=== PATIENT | male | born 1980 | race Two or more races ===

== ENCOUNTER 2023-10-29 21:26 | Inpatient (IN) | payer OTHER, SELFPAY ==
[2023-10-29] VITALS (7 sets, daily range): BP systolic 105–126; BP diastolic 65–81; BMI 30.2
[2023-10-29 16:38] LABS: % Basophils 0.2 % (0-2); % Eosinophils 0.2 % (0-6); % Immature Granulocytes 0.2 % (0-0.5); % Lymphocytes 14.8 % (20.5-51.1); % Monocytes 9.9 % (1.7-9.3); % Neutrophils 74.7 % (42.2-75.2); Absolute Lymphocytes 1.4 10^3/uL (1.2-3.4); Absolute Monocytes 0.9 10^3/uL (0.1-0.6); Absolute Neutrophils 6.9 10^3/uL (1.4-6.5); Hematocrit 41.3 % (39.0-52.0); Hemoglobin 14.2 g/dL (13.0-18.0); Mean Corp Hgb Conc. 34.4 g/dL (33.0-37.0); Mean Corpuscular Hgb 30.3 pg (27.0-31.0); Mean Corpuscular Volume 88.1 fL (80.0-94.0); Mean Platelet Volume 9.1 fL (7.4-10.4); Nucleated Red Blood Cells % 0 % (-); Platelet Count 243 10^3/uL (130-400); Red Blood Cell Count 4.69 10^6/uL (4.70-6.10); Red Cell Dist. Width 13.2 % (11.5-14.5); White Blood Cell Count 9.3 10^3/uL (4.8-10.8)
[2023-10-29 16:46] LABS: ALT (SGPT) 38 U/L (0-50); AST (SGOT) 24 U/L (17-59); Albumin 4.5 g/dl (3.5-5.0); Alkaline Phosphatase 80 U/L (38-126); Blood Urea Nitrogen 10 mg/dl (9-20); Calcium 9.8 mg/dl (8.4-10.2); Carbon Dioxide 26 mmol/L (22-30); Chloride 103 mmol/L (98-107); Glucose 105 mg/dl (70-99); Lipase 17 U/L (23-300); Potassium 3.9 mmol/L (3.5-5.1); Sodium 139 mmol/L (135-145); Total Bilirubin 1.5 mg/dl (0.2-1.3); Total Protein 7.2 g/dl (6.3-8.2); eGFR > 60.00
[2023-10-29 17:06] LABS: Urine Albumin Negative (Neg - Trace); Urine Bilirubin Negative (Negative); Urine Character Clear (Clear); Urine Color Amber; Urine Glucose Negative (Negative); Urine Ketone Negative (Negative); Urine Leukocyte Trace (Negative); Urine Nitrite Negative (Negative); Urine Occult Blood Negative (Negative); Urine Specific Gravity 1.015 (<1.030); Urine Urobilinogen Negative (Neg - 1+)
[2023-10-29 17:21] LABS: Urine Red Blood Cell 0-2 /HPF (0-2)
[2023-10-29] MEDS: TORADOL 15 MG IV (17:21)
[2023-10-29] MEDS: NSS 500 IV (17:21)
[2023-10-29] MEDS: ZOSYN 100 IV (20:06)
--- NOTE | 2023-10-29 20:11 | ED.GENMED ---
History of Present Illness
General
Chief Complaint: Abdominal Symptoms
Source: patient
Exam Limitations: none
Time Seen by Provider: 10/29/23 16:11
Nursing documentation reviewed up to this point in time: agreed with
Travel History
Have you had any contact with someone who has COVID-19?: No
Do you have any symptoms of coronavirus? Fever > 100 degrees, chills, cough, shortness of breath, sore throat, loss of taste or smell, muscle aches, or headache?: No
History of Present Illness
History of Present Illness:
43-year-old male with past medical history of diverticulitis anxiety depression panic disorder prediabetes presenting to the emergency department today with concerns of left lower quadrant pain starting yesterday has a history of diverticulitis
expected to have surgery with Dr. Cardenas in 1 month. No fevers no chest pain shortness of breath nausea or vomiting.
Review of Systems
Review of Systems
Allergies reviewed?: Yes
All Other Systems: ROS reviewed and negative except as documented in HPI and ROS
Phy Exam
Physical Exam
Physical Exam:
GENERAL: Alert , in no apparent distress
EYE: pupils equal and reactive
NECK: Supple, no significant adenopathy.
ENT: o/p clr, mmm.
CARDIAC: Regular rate and rhythm .
LUNGS: Clear breath sounds bilaterally, no acute respiratory distress, no wheezes/rales/rhonchi
ABDOMEN: Left lower quadrant abdominal pain otherwise soft benign abdomen
NEUROLOGICAL: Alert and oriented, no focal neuro deficits
SKIN: Warm and dry, skin intact.
MUSCULOSKELETAL: No edema, well perfused.
PSYCH: Normal and appropriate interaction.
Course
Orders/Labs/Results
Orders:
Orders
10/29/23 16:21
Complete Blood Count/With Diff Urgent
Comprehensive Metabolic Panel Urgent
Lipase Urgent
10/29/23 16:23
Urinalysis Reflex To Culture Urgent
Date Specimen was Collected: 10/29/23
Time Specimen was Collected: 16:22
Urine Microscopic Reflex Cult Urgent
10/29/23 17:16
CT Abd/Pel (IV only)-DH only Urgent
Comment:
Reason For Exam: llq pain
0.9% Sodium Chloride 500 ml [Nss] 500 ml IV BOLUS
Ketorolac [Toradol] 15 mg IV NOW STA
10/29/23 20:02
Piperacillin/Tazo 4.5 Gram [Zosyn] 4.5 gram in 100 ml IV NOW
Abnormal Lab Results
10/29/23 10/29/23
16:21 16:23
RBC 4.69 L 10^6/uL
(4.70-6.10)
Absolute Neuts (auto) 6.9 H 10^3/uL
(1.4-6.5)
Absolute Monos (auto) 0.9 H 10^3/uL
(0.1-0.6)
Lymphocytes % 14.8 L %
(20.5-51.1)
Monocytes % 9.9 H %
(1.7-9.3)
Glucose 105 H mg/dl
(70-99)
Total Bilirubin 1.5 H mg/dl
(0.2-1.3)
Lipase 17 L U/L
(23-300)
Leukocyte Esterase Rfl Trace A
(Negative)
10/29/23 16:21
10/29/23 16:21
Vital Signs
Initial and Last Documented VS:
Initial Vital Signs
Temp Pulse Resp Pulse Ox
99.2 F 98 16 98
10/29/23 15:12 10/29/23 15:12 10/29/23 15:12 10/29/23 15:12
Last Documented Vital Signs
Temp Pulse Resp BP Pulse Ox
99.2 F 80 16 105/65 98
10/29/23 15:12 10/29/23 20:09 10/29/23 20:09 10/29/23 19:00 10/29/23 20:09
MDM/Problems Addressed
MDM/Problems Addressed:
43-year-old male presenting to the emergency department today with concerns of left lower quadrant abdominal pain worsening since yesterday. History of diverticulitis feels similar. Here CT scan was performed that showed sigmoid diverticulitis
complex pericolonic abscess as well as adjacent bubbles of extraluminal air. Case discussed with colorectal will admit. Started on antibiotics. Stable throughout ER stay
*Critical Care Note
Total Time (30-74mins, 75-104mins- exclusive of procedures): Not Applicable
ED Attending Note
-
Portions of this chart may have been created with voice recognition software.� Occasional wrong word or��sound alike� substitutions may have occurred due to the inherent limitations of voice recognition software.
Discharge Plan
Departure
Patient Disposition: Admit
Date of Disposition: 10/29/23
Time of Disposition: 20:12
Admit to: Med/Surg
Admit to doctor: Mc
Presentation/result/management discussed w/ accepting MD/DO: Hospitalist
Patient with high blood pressure during this ER visit?: No
Condition: Good
Covid-19: Not Applicable
Discharge Problem:
Diverticulitis of intestine with abscess
Referrals:
Janes Wade DO [Family Provider] -
Interventions
Interventions:
*Risk Screen - Suicide Last Done: 10/29/23 17:25
*General Assessment Last Done: 10/29/23 17:25
*Neglect/Abuse Screening Last Done: 10/29/23 17:25
ED- Fall Risk Assessment Last Done: 10/29/23 17:25
*ED COVID-19 Vaccine History Last Done: 10/29/23 17:25
NM-Sewwis-Wdfxsgdtqy Assessment Last Done: 10/29/23 17:25
Discharge Date and Time
Print Language: CZECH
--- NOTE | 2023-10-29 20:17 | HPS.HSE ---
Addendum entered and electronically signed by Aamir Bentley DO 10/29/23 21:08:
Patient seen and examined independently. Agree with findings and plan as set forth by CHRISTIANO Vázquez.
Patient is a 43y M with PMH significant for anxiety, GERD and recurrent sigmoid diverticulitis who presents to ED complaining of LLQ abdominal pain and occasional chills. Patient notes that he has had 4-5 episodes of diverticulitis since
04/2023. He was scheduled for sigmoid resection with Dr. Cardenas in November. He denies any bloody / black stools, N/V, fevers, etc.
Ass:
Recurrent Sigmoid Diverticulitis with Pericolonic Abscess
Anxiety / Depression
GERD / Mendenhall's
Plan:
Admit for further evaluation and treatment.
IV abx, NPO, IVFs, etc.
Colorectal Surgery evaluation.
? IR drainage of abscess v surgical intervention.
Follow for any new / worsening symptoms.
Original Note:
Family Physician
-
Family Physician: Janes Wade, DO
Chief Complaint
-
Left lower quadrant pain
History of Present Illness
43-year-old male complaining of left lower quadrant pain that started yesterday. He has history of known diverticulitis starting April 2023 with microperforation followed by diverticulitis in June, July, October 01 with perforated fluid.
He was due to have sigmoid resection in [address] Cardenas. He denies fever, headache, chest pain, palpitations, shortness breath, cough, nausea, vomiting, diarrhea, urinary symptoms. In the ER he was noted to have a sigmoid diverticulitis with
pericolonic abscess
Past medical history diverticulitis, anxiety, panic disorder, depression, prediabetes.
Medical History
Past Medical History
Past Medical History: Reports Other
Additional Past Medical History:
Diverticulitis
Anxiety, panic disorder
Depression
Prediabetes
Past Surgical History: Reports Other
Additional Past Surgical History:
Cholecystectomy
Hernia repair child
Left foot ORIF
Social History
Tobacco: Non-smoker
Alcohol: None
Drug: None
Personal: Single
Employment: Employed
Family History
Family History: Other (Mother history of diverticulosis, valvular heart disorder, DM 2, father [place] age 62, brother DM 2)
Allergies / Home Medications
Allergies reflects when Allergies were last updated in [facility].
Home Medications with original date entered in [facility]
Allergy/Medication List:
Allergies
Allergy/AdvReac Type Severity Reaction Status Date / Time
No Known Allergies Allergy Unverified 10/29/23 15:15
Home Medications
Miralax 17 g PO DAILY 10/29/23
Nexium 40 mg PO DAILY 10/29/23
Review of Systems
-
History Source: Patient
A 12 point ROS was completed and negative except as noted: Yes
Constitutional: Denies Fever or Chills
EENT: Denies Sore Throat or Runny Nose
Respiratory: Denies Cough or Trouble Breathing
Cardiac: Denies Chest Pain, Diaphoresis, Palpitations or Syncope
Abdomen/GI: Reports Abdominal Pain (LLQ); Denies Nausea, Vomiting, Diarrhea, Constipated, Bloody Stools or Black Stools
: Denies Dysuria, Frequency, Flank Pain, Incontinence or Difficulty Voiding
Musculoskeletal: Denies Joint Pain or Edema
Skin: Denies Itching or Rash
Neurological: Denies Dizzy, Headache or Weakness
Endocrine: Reports No Symptoms
Hematologic/Lymphatic: Reports No Symptoms
Psych: Reports Calm
Physical Exam
Vital Signs
Vital Signs
Temp Pulse Resp BP Pulse Ox
99.2 F 80 16 105/65 98
10/29/23 15:12 10/29/23 20:09 10/29/23 20:09 10/29/23 19:00 10/29/23 20:09
Physical Exam
General: Conversant; No Pain, Fever or Chills
HEENT: NormoCephalic, Anicteric, Moist mucous membranes, PERRLA and No Ptosis
Respiratory: Clear; No Wheezes, Rales or Rhonchi
Cardiac: S1/S2 and Regular Rhythm; No Murmur, Rub, Gallop or Peripheral Edema
Breast: Deferred by me
GI: Soft, Non Distended, Normal Bowel Sounds, Tender (LLQ) and No Hepatosplenomegaly
Rectal: Deferred by Provider
Genito-urinary: Deferred by me
Musculoskeletal: No Clubbing, No Cyanosis and No Edema
Skin: Warm and Dry; No Rash or Jaundice
Neuro: AO x 3, No Motor Deficits, Nonfocal/grossly intact and No Sensory Deficits; No Slurred Speech, Facial Droop or Tremors
Psych: Calm
Laboratory Results
-
10/29/23 16:21
10/29/23 16:21
Laboratory Results
Total Bilirubin 1.5 mg/dl (0.2-1.3) H 10/29/23 16:21
AST 24 U/L (17-59) 10/29/23 16:21
ALT 38 U/L (0-50) 10/29/23 16:21
Alkaline Phosphatase 80 U/L (38-126) 10/29/23 16:21
Lipase 17 U/L (23-300) L 10/29/23 16:21
Data Reviewed
-
CT Scan: Report Reviewed by me
Lab Data: Labs Reviewed by me
Impression/Plan
-
Impression/plan:
Admit to [facility]
#Sigmoid diverticulitis with pericolonic abscess
#Hx diverticulitis(APR 2023 with perf, , June, July, September 2021 with perf)
-Consult colorectal surgery
-WBC 9.3, 99.2 F, HR 80, 105/65
-Hold p.o. MiraLAX 17 mg daily
-N.p.o. with sips of clear
-IV Zosyn
-IV NSS
-Follow CBC, CMP
CT abdomen pelvis with IV contrast:
1. Severe acute diverticulitis of the mid sigmoid colon
2. 5.1 cm complex pericolonic abscess anterior to the sigmoid colon and superior to the urinary bladder dome tiny adjacent bubbles of extraluminal
air
3. Moderate diffuse hepatic steatosis
4. Previous cholecystectomy
5. Mild splenomegaly
# Mod diffuse hepatic steatosis per CT
#Anxiety/panic disorder
#Depression Hx
-Patient reports is not on any medication uses deep breathing methods
#Mendenhall's esophagus
#GERD
-[employer] Nexium 40 mg daily will change to IV Protonix 40 mg daily
DVT prophylaxis
Subcu Lovenox
Full code
--- NOTE | 2023-10-29 22:00 | PTCARENOTE ---
Patient arrived from the ED via stretcher. Patient ambulated into the room. AAOx3, VSS. Patient oriented to the room, educated on medications and PRN pain medication and antiemetics. Call pereira is within reach.
[2023-10-29] MEDS: NSS 1000 IV (22:19)
[2023-10-30] VITALS (11 sets, daily range): BP systolic 73–134; BP diastolic 63–79; PULSE 88; O2SAT 97; BMI 30.2
[2023-10-30] MEDS: ZOSYN 50 IV ×4 (01:55→19:40)
[2023-10-30 06:20] LABS: % Basophils 0.3 % (0-2); % Eosinophils 0.5 % (0-6); % Immature Granulocytes 0.4 % (0-0.5); % Monocytes 10.1 % (1.7-9.3); % Neutrophils 71.7 % (42.2-75.2); Absolute Lymphocytes 1.3 10^3/uL (1.2-3.4); Absolute Monocytes 0.8 10^3/uL (0.1-0.6); Absolute Neutrophils 5.4 10^3/uL (1.4-6.5); Hematocrit 38.8 % (39.0-52.0); Hemoglobin 12.8 g/dL (13.0-18.0); Mean Corpuscular Volume 91.1 fL (80.0-94.0); Mean Platelet Volume 9.3 fL (7.4-10.4); Nucleated Red Blood Cells % 0 % (-); Platelet Count 191 10^3/uL (130-400); Red Blood Cell Count 4.26 10^6/uL (4.70-6.10); Red Cell Dist. Width 13.2 % (11.5-14.5); White Blood Cell Count 7.5 10^3/uL (4.8-10.8)
[2023-10-30 06:55] LABS: ALT (SGPT) 30 U/L (0-50); AST (SGOT) 21 U/L (17-59); Albumin 3.6 g/dl (3.5-5.0); Alkaline Phosphatase 75 U/L (38-126); Blood Urea Nitrogen 11 mg/dl (9-20); Carbon Dioxide 24 mmol/L (22-30); Chloride 107 mmol/L (98-107); Estimated Creatinine Clearance 120 ml/min; Glucose 98 mg/dl (70-99); Potassium 3.8 mmol/L (3.5-5.1); Sodium 139 mmol/L (135-145); Total Bilirubin 1.7 mg/dl (0.2-1.3); Total Protein 6.1 g/dl (6.3-8.2); eGFR > 60.00
[2023-10-30] MEDS: PROTONIX IV 40 MG IV (08:40)
[2023-10-30] MEDS: NSS (PRESERVATIVE FREE) 10 ML IV (08:40)
[2023-10-30] MEDS: NSS 1000 IV (08:44)
--- NOTE | 2023-10-30 09:20 | W.PN.HOSP.TC ---
Today's Communication/Plan
-
see outlined plan
Assessment / Plan
Assessment / Plan
Assessment:
Recurrent Sigmoid Diverticulitis with Pericolonic Abscess
- CT: Severe acute diverticulitis of the mid sigmoid colon. 5.1 cm complex pericolonic abscess anterior to the sigmoid colon and superior to the urinary bladder dome tiny adjacent bubbles of extraluminal air
- continue NPO/IVF
- continue pain control and anti-emetics
- continue IV Zosyn
- likely will need IR to place drain. CRS following. Of note, he is scheduled for surgical resection in mid November.
Anxiety/Depression
- not on meds
GERD/Mendenhall's
- continue PPI
Mod diffuse hepatic steatosis per CT
DVT prophylaxis: Lovenox
Code: Full
Anticipated Discharge: > 48 hours
Subjective/Interval History
-
Date of Service: October 30, 2023
'feels better than yesterday'
aware of drain plan
Objective Data
-
Labs:
Laboratory Results
10/30/23
05:21
WBC 7.5
Hgb 12.8 L
Hct 38.8 L
Plt Count 191 D
Sodium 139
Potassium 3.8
Chloride 107
Carbon Dioxide 24
BUN 11
Creatinine 0.9
Glucose 98
Calcium 9.0
Total Bilirubin 1.7 H
AST 21
ALT 30
Alkaline Phosphatase 75
Vital Signs:
Vital Signs
Temp Pulse Resp BP Pulse Ox
99.2 F 91 16 123/64 94
10/30/23 07:30 10/30/23 07:30 10/30/23 07:30 10/30/23 07:30 10/30/23 07:30
I&O
10/29/23 10/30/23 10/31/23
06:59 06:59 06:59
Intake Total 1050 / 1050
Balance 1050 / 1050
Physical Exam
-
General: No Apparent Distress
HEENT: Normocephalic and Atraumatic
Respiratory: Negative Wheezes
Cardiac: Regular Rhythm and S1/S2
GI: Tender (LLQ)
Musculoskeletal: No Edema
Neuro: AO x 3
Hematologic / Lymphatic: No Lymphadenopathy
Psych: Calm
Data Reviewed
-
Total Time Spent with Patient (in minutes): 42
Labs: Labs Reviewed by me
--- NOTE | 2023-10-30 09:35 | PTOTSP ---
pt currently demonstrates ability to complete simple ADLs, functional transfers, ambulation with supervision to no assistance. pt demonstrates no acute OT needs at this time, will sign off.
--- NOTE | 2023-10-30 10:28 | PTOTSP ---
Patient demonstrates good insight into safety with mobility and ambulation without overt deviation. Independent with mobility and does not demonstrate further need for skilled therapy; will discharge at this time. If needs change, please re-consult.
--- NOTE | 2023-10-30 10:31 | CON.CRS ---
Consultation
-
Performing Provider: Prateek Rivera MD
Reason for Consultation: diverticulitis
Medical History
-
History of Present Illness:
Patient is a 43-year-old male with PMH of GERD, anxiety, prediabetes, recurrent diverticulitis (scheduled for surgery with Dr. Cardenas in November), who presents with 1 day of acute abdominal pain in the left lower to suprapubic region, similar to
previous episodes. He denies any N/V, CP/SOB. No urinary symptoms except for bladder pressure during urination. In the ED, he was afebrile with WBC of 9.3. A CT was done showing acute sigmoid diverticulitis with 5 cm pericolonic abscess. He was
admitted with IVF, IV antibiotics and bowel rest.
This morning, denies any N/V. Passing flatus and had a BM. Urinating well. Pain well-controlled.
Past Medical History
Past Medical History: Other (As above)
Past Surgical History: Other (Cholecystectomy, hernia repair, left foot ORIF)
Social History
Tobacco: Non-Smoker
Alcohol: None
Drug: None
Personal: Single
Employment: Employed
Family History
Family History: Other (Mother - diverticulosis, valvular heart disorder, DM 2; father - [place] age 62; brother - DM)
Allergies / Home Medications
Allergy/AdvReac Type Severity Reaction Status Date / Time
No Known Allergies Allergy Unverified 10/29/23 15:15
�Medication �Instructions �Recorded �Confirmed �Type
Miralax 17 g PO DAILY 10/29/23 10/29/23 History
Nexium 40 mg PO DAILY 10/29/23 10/29/23 History
Review of Systems
-
All other systems: Negative unless noted
A 10 point review of systems was completed, and was negative except as per HPI.
Physical Exam
Vital Signs
Temp 99.2 F 10/30/23 07:30
Pulse 91 10/30/23 07:30
Resp Rate 16 10/30/23 07:30
Blood pressure 123/64 10/30/23 07:30
SaO2 94 10/30/23 07:30
10/29/23 10/30/2324
06:59 06:59 06:59
Actual Weight 95.481 kg
Body Mass Index (BMI) 30.2
Lab Results / Allergies
10/30/23 05:21
10/30/23 05:21
WBC 7.5 10^3/uL (4.8-10.8) 10/30/23 05:21
Hgb 12.8 g/dL (13.0-18.0) L 10/30/23 05:21
Hct 38.8 % (39.0-52.0) L 10/30/23 05:21
Plt Count 191 10^3/uL (130-400) D 10/30/23 05:21
Abs Immat Gran (auto) 0.0 10^3/uL (0-0.05) 10/30/23 05:21
Neutrophils % 71.7 % (42.2-75.2) 10/30/23 05:21
Allergy/AdvReac Type Severity Reaction Status Date / Time
No Known Allergies Allergy Unverified 10/29/23 15:15
Physical Exam
General: Well Developed and No Apparent Distress
HEENT: Normocephalic and Atraumatic
Respiratory: Non Labored Respirations
GI: Soft, Non Distended and Tender (Mildly tender in the suprapubic to left lower quadrant; no rebound or guarding)
Skin: Warm and Dry
Neuro: AO x 3
Data Reviewed
-
CT Scan: Image Personally Visualized and interpreted and Discussed with Patient
Labs: Labs Reviewed by me and Discussed with Patient
Assessment / Plan
-
43-year-old male with PMH of GERD, anxiety, prediabetes, recurrent diverticulitis (scheduled for surgery with Dr. Cardenas in November), who presents with 1 day of acute abdominal pain in the left lower to suprapubic region, similar to previous episodes.
He denies any N/V, CP/SOB. No urinary symptoms except for bladder pressure during urination. In the ED, he was afebrile with WBC of 9.3. A CT was done showing acute sigmoid diverticulitis with 5 cm pericolonic abscess. He was admitted with IVF,
IV antibiotics and bowel rest
Afebrile, WBC 7.5 from 9.3
�Recommend IR consult for possible IR�guided drainage of suprapubic pericolonic diverticular abscess
� No acute surgical intervention currently indicated; discussed with patient the treatment for complicated versus uncomplicated diverticulitis and risks/benefits of nonoperative versus operative treatment, including, but not limited to, higher risk
of ostomy and open surgery in urgent setting; will proceed with nonoperative measures and IR guided drainage and monitor for clinical improvement
� Continue n.p.o.; okay for clears after drain placement
� Continue pain control with Tylenol, Toradol and morphine as needed
� Continue IV Zosyn
� Continue DVT PPx with Lovenox
� Continue home meds, okay for p.o. meds
� Appreciate hospitalist
--- NOTE | 2023-10-30 10:45 | CM ---
Patient seen bedside, initial assessment completed. Patient resides with his partner in a two story home, 5 steps to enter. Patient denies DME, VN, or SNF history. Patient confirms PCP Janes Wade, pharmacy [facility], confirms
prescription coverage. Patient denies food insecurities at home. CM received consult for advance directive paperwork, provided. Per Hospitalist, plan for IR drain today. CM will continue to follow for discharge planning needs.
Plan; home no needs, watch for VN needs.
[2023-10-30] MEDS: TORADOL 30 MG IV (11:24)
[2023-10-30 12:06] LABS: INR 1.19; PT 14.9 Sec (11.4-14.6)
--- NOTE | 2023-10-30 16:39 | W.PN.UPDATE ---
Update Note
Progress Note Update
CT guided abscess drain placed, yielding 15 cc of bloody purulent fluid. Sent for C+S.
--- NOTE | 2023-10-30 16:47 | PTCARENOTE ---
Arrived from IR with GENE drain to lower midline of abdomen. CDI.
[2023-10-30] MEDS: LOVENOX 40 MG SC (18:02)
[2023-10-31] MEDS: NSS 1000 IV ×2 (00:49→11:40)
[2023-10-31] MEDS: TORADOL 30 MG IV (02:35)
[2023-10-31] MEDS: ZOSYN 50 IV ×4 (02:35→19:39)
[2023-10-31 06:36] LABS: % Basophils 0.3 % (0-2); % Eosinophils 1.2 % (0-6); % Immature Granulocytes 0.5 % (0-0.5); % Monocytes 10.1 % (1.7-9.3); % Neutrophils 68.9 % (42.2-75.2); Absolute Eosinophils 0.1 10^3/uL (0-0.7); Absolute Lymphocytes 1.2 10^3/uL (1.2-3.4); Absolute Monocytes 0.6 10^3/uL (0.1-0.6); Absolute Neutrophils 4.2 10^3/uL (1.4-6.5); Hematocrit 34.9 % (39.0-52.0); Hemoglobin 11.8 g/dL (13.0-18.0); Mean Corp Hgb Conc. 33.8 g/dL (33.0-37.0); Mean Corpuscular Hgb 30.2 pg (27.0-31.0); Mean Corpuscular Volume 89.3 fL (80.0-94.0); Mean Platelet Volume 9.4 fL (7.4-10.4); Nucleated Red Blood Cells % 0 % (-); Platelet Count 195 10^3/uL (130-400); Red Blood Cell Count 3.91 10^6/uL (4.70-6.10); Red Cell Dist. Width 12.9 % (11.5-14.5); White Blood Cell Count 6.1 10^3/uL (4.8-10.8)
[2023-10-31 07:15] LABS: ALT (SGPT) 27 U/L (0-50); AST (SGOT) 22 U/L (17-59); Albumin 3.3 g/dl (3.5-5.0); Alkaline Phosphatase 64 U/L (38-126); Blood Urea Nitrogen 10 mg/dl (9-20); Calcium 8.6 mg/dl (8.4-10.2); Carbon Dioxide 21 mmol/L (22-30); Chloride 107 mmol/L (98-107); Estimated Creatinine Clearance > 125 ml/min; Glucose 93 mg/dl (70-99); Potassium 3.8 mmol/L (3.5-5.1); Sodium 137 mmol/L (135-145); Total Bilirubin 1.5 mg/dl (0.2-1.3); Total Protein 5.6 g/dl (6.3-8.2); eGFR > 60.00
[2023-10-31 07:20] VITALS: BP 113/70
--- NOTE | 2023-10-31 09:00 | W.PN.CRS1 ---
Today's Communication / Plan
-
Advance to low residue; okay for DC if tolerating
Recommend Augmentin for 7 to 10 days; can tailor antibiotic once culture data returns
Needs drain study in 2 weeks
Follow-up with Dr. Cardenas in 2 to 3 weeks
Assessment/Plan
-
43-year-old male with PMH of GERD, anxiety, prediabetes, recurrent diverticulitis (scheduled for surgery with Dr. Cardenas in November), who presents with 1 day of acute abdominal pain in the left lower to suprapubic region, similar to previous episodes.
He denies any N/V, CP/SOB. No urinary symptoms except for bladder pressure during urination. In the ED, he was afebrile with WBC of 9.3. A CT was done showing acute sigmoid diverticulitis with 5 cm pericolonic abscess. He was admitted with IVF,
IV antibiotics and bowel rest
S/p IR drain with 15 mL of grossly purulent fluid, sent for culture
Afebrile, WBC 6.1 from 7.5
� Advance to low residue diet
� Continue pain control with Tylenol, Toradol and morphine as needed
� Continue IV Zosyn; follow-up cultures
� Continue DVT PPx with Lovenox
� Continue home meds, okay for p.o. meds
� Appreciate hospitalist
�If tolerating low residue, okay for DC this afternoon
-would send on broad-spectrum oral antibiotic like Augmentin until culture data comes back
-will need drain study in 2 weeks and follow-up with Dr. Cardenas in 2 to 3 weeks
Subjective Data
Subjective Data
Date of Service: October 31, 2023
No overnight events.
Complains of pain near the drain. His abdominal pain is improving
Denies nausea/vomiting. Tolerating diet.
+flatus +BMs +voiding
Pt is OOB.
Objective Data
-
Vital Signs
Temp Pulse Resp BP Pulse Ox
98.8 F 81 16 113/70 95
10/31/23 07:20 10/31/23 07:20 10/31/23 07:20 10/31/23 07:20 10/31/23 07:20
Intake & Output
10/30/23 10/31/23 11/01/23
06:59 06:59 06:59
Intake Total 1600 / 1600
Output Total
Balance 1570 / 1570
Intake:
Oral fluids 400 / 400
IV fluids (Total) 1000 / 1000
IV piggybacks 200 / 200
Output:
Drain Output (Total)
Lower Abdomen Placed in IR
Other:
Number of approximated MODERATE 2 2
amounts of urine
Lab Results
10/31/23 05:52
10/31/23 05:52
Physical Exam
-
General: No Acute Distress and AOx3
HEENT: Grossly Normal
Abdomen: Soft, Non Distended, Tender (Mildly tender near suprapubic drain), No Guarding, No Rebound and Other (GENE-30 mL serosanguineous output)
Skin: Warm and Dry
[2023-10-31] MEDS: PROTONIX IV 40 MG IV (09:08)
[2023-10-31] MEDS: NSS (PRESERVATIVE FREE) 10 ML IV (09:08)
--- NOTE | 2023-10-31 10:16 | W.PN.HOSP.TC ---
Today's Communication/Plan
-
continue Abx pending cultures, continue drain
Assessment / Plan
Assessment / Plan
Assessment:
Recurrent Sigmoid Diverticulitis with Pericolonic Abscess
- CT: Severe acute diverticulitis of the mid sigmoid colon. 5.1 cm complex pericolonic abscess anterior to the sigmoid colon and superior to the urinary bladder dome tiny adjacent bubbles of extraluminal air
- s/p IR Drain 10/29. Needs drain study in 2 weeks with IR. Setup VN.
- continue pain control and anti-emetics
- continue IV Zosyn, day 2. Follow drain cultures. Tentatively plan Augmentin x 10 days
- diet: LRD will assess tolerance
- of note, he is scheduled for surgical resection in mid November. He will need to see Dr. Cardenas in 2-3 weeks.
Anxiety/Depression
- not on meds
GERD/Mendenhall's
- continue PPI
Mod diffuse hepatic steatosis per CT
DVT prophylaxis: Lovenox
Code: Full
Anticipated Discharge: Within 24 hours
Subjective/Interval History
-
Date of Service: October 31, 2023
s/p IRAD drainage
some pain near drainage, underlying abd pain improving
no n/v
tolerating diet
Objective Data
-
Labs:
Laboratory Results
10/31/23
05:52
WBC 6.1
Hgb 11.8 L
Hct 34.9 L
Plt Count 195
Sodium 137
Potassium 3.8
Chloride 107
Carbon Dioxide 21 L
BUN 10
Creatinine 0.8
Glucose 93
Calcium 8.6
Total Bilirubin 1.5 H
AST 22
ALT 27
Alkaline Phosphatase 64
Vital Signs:
Vital Signs
Temp Pulse Resp BP Pulse Ox
98.8 F 81 16 113/70 95
10/31/23 07:20 10/31/23 07:20 10/31/23 07:20 10/31/23 07:20 10/31/23 07:20
I&O
10/30/23 10/31/23 11/01/23
06:59 06:59 06:59
Intake Total 1600 / 1600
Output Total
Balance 1570 / 1570
Physical Exam
-
General: No Apparent Distress
HEENT: Normocephalic and Atraumatic
Respiratory: Negative Wheezes or Rales
Cardiac: Regular Rhythm and S1/S2
GI: Other (mildly tender near suprapubic drain)
Genito-urinary: No Costovertebral Tender
Musculoskeletal: No Edema
Neuro: AO x 3
Hematologic / Lymphatic: No Lymphadenopathy
Psych: Calm
Data Reviewed
-
Total Time Spent with Patient (in minutes): 42
Labs: Labs Reviewed by me
--- NOTE | 2023-10-31 13:33 | CM ---
Patient seen bedside, discussed VN for drain care. Patient reports he does not anticipate taking any time off an will not be home bound. CM will confirm patient does not qualify for VN as he is not home bound. CM spoke with Shira from [facility], unable
to accept patient as he is not homebound. CM will relay to patient. CM will continue to follow for discharge planning needs.
Plan; home, patient does not qualify for VN as he reports he is returning to work and will not be home bound.
[2023-10-31 15:55] VITALS: BP 126/69
[2023-10-31] MEDS: LOVENOX 40 MG SC (17:05)
[2023-10-31] MEDS: TYLENOL 650 MG PO (17:12)
[2023-10-31 23:17] VITALS: BP 104/66
[2023-11-01] MEDS: ZOSYN 50 IV ×2 (01:13→08:22)
[2023-11-01 07:45] VITALS: BP 150/79
[2023-11-01 08:03] LABS: % Basophils 0.7 % (0-2); % Eosinophils 2.5 % (0-6); % Immature Granulocytes 0.5 % (0-0.5); % Lymphocytes 23.9 % (20.5-51.1); % Monocytes 11.2 % (1.7-9.3); % Neutrophils 61.2 % (42.2-75.2); Absolute Eosinophils 0.1 10^3/uL (0-0.7); Absolute Lymphocytes 1.1 10^3/uL (1.2-3.4); Absolute Monocytes 0.5 10^3/uL (0.1-0.6); Absolute Neutrophils 2.7 10^3/uL (1.4-6.5); Hematocrit 38.7 % (39.0-52.0); Hemoglobin 12.9 g/dL (13.0-18.0); Mean Corp Hgb Conc. 33.3 g/dL (33.0-37.0); Mean Corpuscular Hgb 30.1 pg (27.0-31.0); Mean Corpuscular Volume 90.4 fL (80.0-94.0); Mean Platelet Volume 9.3 fL (7.4-10.4); Nucleated Red Blood Cells % 0 % (-); Platelet Count 191 10^3/uL (130-400); Red Blood Cell Count 4.28 10^6/uL (4.70-6.10); Red Cell Dist. Width 13.1 % (11.5-14.5); White Blood Cell Count 4.4 10^3/uL (4.8-10.8)
[2023-11-01] MEDS: NSS (PRESERVATIVE FREE) 10 ML IV (08:22)
[2023-11-01] MEDS: PROTONIX IV 40 MG IV (08:22)
[2023-11-01] MEDS: ZOFRAN 4 MG IV (08:27)
[2023-11-01 08:37] LABS: ALT (SGPT) 23 U/L (0-50); AST (SGOT) 20 U/L (17-59); Albumin 3.6 g/dl (3.5-5.0); Alkaline Phosphatase 68 U/L (38-126); Blood Urea Nitrogen 6 mg/dl (9-20); Carbon Dioxide 23 mmol/L (22-30); Chloride 107 mmol/L (98-107); Estimated Creatinine Clearance > 125 ml/min; Glucose 109 mg/dl (70-99); Potassium 3.8 mmol/L (3.5-5.1); Sodium 140 mmol/L (135-145); Total Bilirubin 1.1 mg/dl (0.2-1.3); Total Protein 6.1 g/dl (6.3-8.2); eGFR > 60.00
--- NOTE | 2023-11-01 09:13 | W.PN.CRS1 ---
Today's Communication / Plan
-
continue antibiotics
continue low residue
okay for d/c from our standpoint with drain and oral abx
Assessment/Plan
-
pt with acute sigmoid diverticulitis with 5 cm pericolonic abscess
S/p IR drain with 15 mL of grossly purulent fluid, sent for culture
� Continue low residue diet.
� Continue pain control with Tylenol, Toradol and morphine as needed
� Continue IV Zosyn; follow-up cultures - growing gram negative bacilli
� Continue DVT PPx with Lovenox
� Okay for discharge from our standpoint. He will need oral antibiotics as an outpatient. Follow up with Dr. Cardenas in 2 weeks. Will need eventual drain study in 2 weeks - order sent in, patient will need to call for an appt
Subjective Data
Subjective Data
Date of Service: November 01, 2023
Patient states he had some nausea this morning which he attributes to nerves. Otherwise, he states he is eating. He denies nausea or vomiting. He has bowel movements and flats.
Objective Data
-
Vital Signs
Temp Pulse Resp BP Pulse Ox
98.6 F 88 16 150/79 96
11/01/23 07:45 11/01/23 07:45 11/01/23 07:45 11/01/23 07:45 11/01/23 07:45
Intake & Output
10/31/23 11/01/23 11/02/23
06:59 06:59 06:59
Intake Total 1600 / 1600
Output Total 30 / 30 20 / 20
Balance 1570 / 1570 - /
Intake:
Oral fluids 400 / 400
IV fluids (Total) 1000 / 1000
IV piggybacks 200 / 200
Amount instilled into Drain (
Total)
Lower Abdomen Placed in IR
Output:
Drain Output (Total)
Lower Abdomen Placed in IR
Other:
Number of approximated MODERATE 2 2
amounts of urine
Lab Results
11/01/23 07:23
11/01/23 07:23
Physical Exam
-
General: No Acute Distress and AOx3
Abdomen: Soft, Non Distended, Tender (suprapubic near drain (mild)) and Other (GENE drain in place with mixed blood and pus)
Skin: Warm and Dry
--- NOTE | 2023-11-01 09:33 | W.PN.HOSP.TC ---
Today's Communication/Plan
-
dc to home
Assessment / Plan
Assessment / Plan
Assessment:
Recurrent Sigmoid Diverticulitis with Pericolonic Abscess
- CT: Severe acute diverticulitis of the mid sigmoid colon. 5.1 cm complex pericolonic abscess anterior to the sigmoid colon and superior to the urinary bladder dome tiny adjacent bubbles of extraluminal air
- s/p IR Drain 10/29. Needs drain study in 2 weeks with IR.
- continue pain control and anti-emetics
- dc on Augmentin x 10 days. culture GNB. I will follow results for any additional findings that would prompt antibiotic changes.
- diet: LRD will assess tolerance
- of note, he is scheduled for surgical resection in mid November. He will need to see Dr. Cardenas in 2-3 weeks.
Anxiety/Depression
- not on meds
GERD/Mendenhall's
- continue PPI
Mod diffuse hepatic steatosis per CT
DVT prophylaxis: Lovenox
Code: Full
More than 30 minutes spent in discharge including
Final examination of the patient
Summarizing hospital stay
Instructions for continuing care to all relevant caregivers
Preparation of discharge records, prescriptions, and referral forms
Total time spent (in minutes):41
Anticipated Discharge: Today
Subjective/Interval History
-
Date of Service: November 01, 2023
anxious this morning, no other complaints
Objective Data
-
Labs:
Laboratory Results
11/01/23
07:23
WBC 4.4 L
Hgb 12.9 L
Hct 38.7 L
Plt Count 191
Sodium 140
Potassium 3.8
Chloride 107
Carbon Dioxide 23
BUN 6 L
Creatinine 0.8
Glucose 109 H
Calcium 9.0
Total Bilirubin 1.1
AST 20
ALT 23
Alkaline Phosphatase 68
Vital Signs:
Vital Signs
Temp Pulse Resp BP Pulse Ox
98.6 F 88 16 150/79 96
11/01/23 07:45 11/01/23 07:45 11/01/23 07:45 11/01/23 07:45 11/01/23 07:45
I&O
10/31/23 11/01/23 11/02/23
06:59 06:59 06:59
Intake Total 1600 / 1600
Output Total
Balance 1570 / 1570 -10 / -10
Physical Exam
-
General: No Apparent Distress
HEENT: Normocephalic and Atraumatic
Respiratory: Negative Wheezes
Cardiac: Regular Rhythm
GI: Soft
Genito-urinary: No Costovertebral Tender
Neuro: AO x 3
Hematologic / Lymphatic: No Lymphadenopathy
Psych: Calm
Data Reviewed
-
Total Time Spent with Patient (in minutes): 41
Labs: Labs Reviewed by me
--- NOTE | 2023-11-01 10:01 | W.DS.TRANS ---
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
-
Discharge Instructions:
Discharge Diagnosis/Procedures diverticulitis with abscess
Diet Low Residue
Activity No strenuous activity
Additional Activity see paper script for restrictions
Bathing Restrictions None
Instructions: Low Fiber Diet
How to Keep Track of Your Drainage
Stand-Alone Forms:
Changes to Home Medications: No
Discharge Medications:
DC Medications w/original date entered in [facility]
Miralax 17 g PO DAILY 10/29/23
Nexium 40 mg PO DAILY 10/29/23
amoxicillin 875 mg-potassium clavulanate 125 mg tablet 1 tab PO Q12H #20 tabs 11/01/23
ondansetron 4 mg disintegrating tablet 4 mg PO Q8H PRN nausea and vomiting #20 tabs 11/01/23
Home Medication Changes
Pending Results: No
Total time spent discharging patient (in min): 41
[2023-11-01 11:56] VITALS: BP 123/75
--- NOTE | 2023-11-01 11:59 | CM ---
Patient seen bedside, discussed plan for discharge today. Patient aware [facility] cannot accept patient as he is not home bound and is returning to work. Patient reports he will have transportation home later this evening, patient feels comfortable
transporting self home, patient not on any narcotics per nurse. CM will continue to follow for discharge planning needs.
Plan; home no needs.
--- NOTE | 2023-11-03 12:38 | W.PN.UPDATE ---
Update Note
Progress Note Update
Noted final culture with ESBL susceptible to Bactrim. Notified patient via VM for updated Bactrim RX and stop Augmentin. Left # for him to call me back
== END 2023-11-01 12:36 | disposition home or self-care (01) | DRG 392 ==
LOC: 4 EAST ACU 21:26
PROVIDERS: Clinical Nurse Specialist Family Health; Physician Assistant; Radiology Vascular & Interventional Radiology; ADMITTING PHYSICIAN Hospitalist; ATTENDING PHYSICIAN Internal Medicine; CONSULT PHYSICIAN Surgery; EMERGENCY PHYSICIAN Student in an Organized Health Care Education/Training Program; FAMILY PHYSICIAN Family Medicine
PROC: 0W9J30Z Drainage of Pelvic Cavity with Drainage Device, Percutaneous Approach (ICD-10-PCS; 2023-10-30)
DX: K57.20 Diverticulitis of large intestine with perforation and abscess without bleeding (principal); K21.9 Gastro-esophageal reflux disease without esophagitis; K22.70 Barrett's esophagus without dysplasia; F32.A Depression, unspecified; F41.0 Panic disorder [episodic paroxysmal anxiety]; K76.0 Fatty (change of) liver, not elsewhere classified
CPT/HCPCS: 49406; 74177; 80053; 81003; 81015; 83690; 85025; 85610; 87070; 87077; 87147; 87186; 87205; 96361; 96365; 96375; 97116; 97162; 97165; 99152; 99153; 99285; Q9967

== ENCOUNTER → 2023-11-10 12:09 | Outpatient (REF) | payer OTHER, SELFPAY ==
[2023-11-10 12:25] VITALS: BP 124/83; BP_SYST 88
[2023-11-10 12:55] VITALS: BP 120/70
== END ==
LOC: RADI 12:09
PROVIDERS: ATTENDING PHYSICIAN Surgery; FAMILY PHYSICIAN Family Medicine
DX: K57.32 Diverticulitis of large intestine without perforation or abscess without bleeding (principal)
CPT/HCPCS: 49424; 76080

== ENCOUNTER 2023-11-24 00:32 | Emergency (ER) | payer OTHER, SELFPAY ==
[2023-11-24 01:04] VITALS: BP 112/73
--- NOTE | 2023-11-24 01:26 | ED.GENMED ---
History of Present Illness
General
Chief Complaint: Allergic Reaction
Source: patient
Exam Limitations: none
Time Seen by Provider: 11/24/23 01:16
Travel History
Have you had any contact with someone who has COVID-19?: No
Do you have any symptoms of coronavirus? Fever > 100 degrees, chills, cough, shortness of breath, sore throat, loss of taste or smell, muscle aches, or headache?: No
History of Present Illness
History of Present Illness:
This is a 43 year old male that comes in with c/o allergic reaction. States that he is doing a bowel prep as he is to have surgery this morning. States that they are taking out part of his colon for diverticulitis. States that he took the first part
of the prep and he went to take the second part of the prep and he broke out in hives all over and vomiting. States that his tongue felt tingling and he was shaking. States that he felt lightheaded. Denies any fever, chills, chest pain, SOB, abd
pain, headache, urinary burning.
Past History
Past History
ED Past Medical History: GERD, Psychiatric (Anxiety, Depression) and Other (barretts esophagus, Diverticulitis, )
ED Past Surgical History: Cholecystectomy, Orthopedic (ORIF left foot) and Other (Hernia)
Social History
Tobacco: Non-smoker
Alcohol: None
Personal: Partner (Same sex)
Living: with family
Review of Systems
Review of Systems
All Other Systems: ROS reviewed and negative except as documented in HPI and ROS
Constitutional: Reports no symptoms; Denies fever or chills
EENT: Reports no symptoms
Respiratory: Reports no symptoms; Denies cough or trouble breathing
Cardiac: Reports no symptoms; Denies chest pain
ABD/GI: Reports vomiting and diarrhea; Denies abdominal pain
: Reports no symptoms
Musculoskeletal: Reports no symptoms
Skin: Reports other (Hives)
Neurological: Reports other (Lightheaded); Denies headache
Psychiatric: Reports no symptoms
Phy Exam
General Physical Exam
General Presentation: no apparent distress
General age: appears stated age
General Skin: warm and dry
General Habitus: normal
General Mental: alert
General Hydration: appears well hydrated
ENT Exam
ENT Exam: TM's normal, pharynx normal and neck supple
Eye Exam
Eye Exam: EOMI
Cardiovascular Exam
Cardiovascular Exam: regular rate/rhythm, no edema, no murmur and normal peripheral pulses
Pulmonary Exam
Pulmonary Exam: lungs clear, no respiratory distress, no rales, chest non tender, no crackles, no rhonchi, no wheezing and no cough
Gastrointestinal Exam
Gastrointestinal Exam: normal bowel sounds, non tender, soft, no organomegaly, no pulsatile mass and non distended
Musculoskeletal Exam
Musculoskeletal Exam: full ROM and no edema
Skin Exam
Skin Exam: normal color, warm/dry, no petechia and other (Very faint red spots noted on the medial aspect of the thighs)
Psychiatric Exam
Psychiatric Exam: normal mood/affect
Course
Orders/Labs/Results
Orders:
Orders
11/24/23 01:25
0.9% Sodium Chloride 1000 ml [Nss] 1,000 ml IV BOLUS
Famotidine [Pepcid] 20 mg IV NOW STA
Vital Signs
Initial and Last Documented VS:
Initial Vital Signs
Temp Pulse Resp BP Pulse Ox
99.7 F 107 16 112/73 95
11/24/23 01:04 11/24/23 01:04 11/24/23 01:04 11/24/23 01:04 11/24/23 01:04
Last Documented Vital Signs
Temp Pulse Resp BP Pulse Ox
99.7 F 107 16 112/73 95
11/24/23 01:04 11/24/23 01:04 11/24/23 01:04 11/24/23 01:04 11/24/23 01:04
MDM/Problems Addressed
Differential Diagnosis Includes:
Allergic reaction.
MDM/Problems Addressed:
this is a 43 year old male that comes in with c/o allergic reaction. States tht he is doing a bowel prep and he was on the second portion when he broke out in hive, vomited and was shaking.
Will give IV fluids and Pepcid.
Back into see patient. Patient is feeling better. Will discharge home.
Chronic conditions affecting care:
NA
Acute Exacerbation and/or Progression of Chronic Illness:
NA
*Pulse Oximetry
Patient hypoxic: no
*EKG
Interpreted by ED Provider?: NA
Rate: EKG- N/A
*Land Classifier Interpretation
Rate: Land Classifier- N/A
*Critical Care Note
Total Time (30-74mins, 75-104mins- exclusive of procedures): Not Applicable
ED Attending Note
-
Portions of this chart may have been created with voice recognition software.� Occasional wrong word or��sound alike� substitutions may have occurred due to the inherent limitations of voice recognition software.
Discharge Plan
Departure
Patient Disposition: Home (Routine Discharge)
Date of Disposition: 11/24/23
Time of Disposition: 02:37
Patient with high blood pressure during this ER visit?: No
Condition: Good
Covid-19: Not Applicable
Discharge Problem:
Allergic reaction caused by a drug
Instructions: Adverse Drug Reactions, Adult (DC)
Prescriptions:
No Action
metronidazole 500 mg Tablet
500 mg PO 1400,1500,2200
neomycin 500 mg Tablet
1 g PO 1400,1500,2200
Sutab 1.479-0.188- 0.225 gram Tablet
0 tab PO PRE OP
esomeprazole magnesium [Nexium] 40 mg Capsule,Delayed Release(Dr/Ec)
40 mg PO DAILY Qty: 0
Referrals:
Durand,Janes Rafa, [Family Provider] - Call in 1-3 days for appt
Activity Restrictions/Additional Instructions:
As discussed, please follow up with the family doctor for recheck. Please notify the surgeon of your allergy to this Prep. IF YOU HAVE ANY OTHER CONCERNS PLEASE RETURN TO THE EMERGENCY ROOM.
Interventions
Interventions:
*Risk Screen - Suicide Last Done: 11/24/23 01:04
*Neglect/Abuse Screening Last Done: 11/24/23 01:04
*ED COVID-19 Vaccine History Last Done: 11/24/23 01:04
ED- Cardiac Assessment Last Done: 11/24/23 01:45
ED- Pulmonary Assessment Last Done: 11/24/23 01:45
ED-Skin Assessment Last Done: 11/24/23 01:45
Discharge Date and Time
Print Language: K[place]IL[place]
[2023-11-24] MEDS: PEPCID 20 MG IV (01:33)
[2023-11-24] MEDS: NSS 1000 IV (01:33)
[2023-11-24 02:37] VITALS: BP 106/64
== END 2023-11-24 02:58 | disposition home or self-care (01) ==
LOC: EMR 00:32
PROVIDERS: EMERGENCY PHYSICIAN Student in an Organized Health Care Education/Training Program; FAMILY PHYSICIAN Family Medicine
DX: L50.0 Allergic urticaria (principal); R11.10 Vomiting, unspecified; T50.905A Adverse effect of unspecified drugs, medicaments and biological substances, initial encounter
CPT/HCPCS: 96374; 99284

== ENCOUNTER 2023-11-24 05:45 | Inpatient (IN) | payer OTHER, SELFPAY ==
[2023-11-20 08:57] VITALS: BMI 33.6
[2023-11-20 10:09] LABS: Hematocrit 41.8 % (39.0-52.0); Hemoglobin 13.9 g/dL (13.0-18.0); Mean Corp Hgb Conc. 33.3 g/dL (33.0-37.0); Mean Corpuscular Hgb 30.3 pg (27.0-31.0); Mean Corpuscular Volume 91.3 fL (80.0-94.0); Mean Platelet Volume 9.2 fL (7.4-10.4); Platelet Count 202 10^3/uL (130-400); Red Blood Cell Count 4.58 10^6/uL (4.70-6.10); Red Cell Dist. Width 13.5 % (11.5-14.5); White Blood Cell Count 5.6 10^3/uL (4.8-10.8)
[2023-11-20 10:37] LABS: INR 1.08; PT 13.9 Sec (11.4-14.6)
[2023-11-20 12:04] LABS: Glycohemoglobin (HgbA1c) 5.7 % (4.0-5.6)
[2023-11-20 12:22] LABS: Albumin 4.3 g/dl (3.5-5.0)
[2023-11-20 12:48] LABS: ALT (SGPT) 52 U/L (0-50); AST (SGOT) 41 U/L (17-59); Alkaline Phosphatase 71 U/L (38-126); Blood Urea Nitrogen 14 mg/dl (9-20); Calcium 9.6 mg/dl (8.4-10.2); Carbon Dioxide 26 mmol/L (22-30); Chloride 104 mmol/L (98-107); Estimated Creatinine Clearance > 125 ml/min; Glucose 99 mg/dl (70-99); Potassium 4.2 mmol/L (3.5-5.1); Sodium 140 mmol/L (135-145); Total Protein 7.1 g/dl (6.3-8.2); eGFR > 60.00
[2023-11-24] VITALS (12 sets, daily range): BP systolic 106–141; BP diastolic 66–76; BMI 33.4; BMI 33.6
[2023-11-24] MEDS: NORMOSOL-R 1000 IV ×3 (06:39→21:14)
[2023-11-24] MEDS: ENTEREG 12 MG PO (06:40)
[2023-11-24] MEDS: TYLENOL 1000 MG PO (06:40)
[2023-11-24] MEDS: HEPARIN 5000 UNITS SC (06:40)
--- NOTE | 2023-11-24 10:36 | W.IMMPOSTOP ---
Surgical Immed Post Op Note
-
Primary Surgeon: Chandler Cardenas MD
Scholastic Aptitude Test Grader: DEYANIRA Villa
Pre-op Diagnosis: Recurrent sigmoid diverticulitis with recent abscess requiring percutaneous drainage
Post-op Diagnosis: Same
Procedure Performed: Cystoscopy with insertion of ureteral stents/ICG by Dr. Narayanan
Robotic sigmoid colectomy with intracorporeal anastomosis
Anesthesia Type: GET
Specimen / Cultures: Sigmoid colon (suture is proximal)
Estimated Blood Loss: 15cc
Complications: None
Operative Findings: Area of active inflammation in the mid-sigmoid colon
28mm EEA
Normal leak test
Right ureteral stent removed at the end of the case
Patient's signficant other updated.
[2023-11-24] MEDS: TORADOL 15 MG IV ×3 (12:11→23:43)
[2023-11-24] MEDS: TYLENOL 650 MG PO ×4 (12:11→23:44)
[2023-11-24] MEDS: ZOFRAN 4 MG IV (12:11)
--- NOTE | 2023-11-24 12:31 | PTCARENOTE ---
Received pt from PACU with two AUTOMATIC DOOR MECHANIC's at bedside, VSS, 2Lo2 in place, Davies draining brown/bloody urine. Pt resting comfortably in bed at this time.
[2023-11-25 03:49] VITALS: BP 109/64
[2023-11-25] MEDS: TYLENOL PO ×2 (04:00→11:39)
[2023-11-25 05:20] VITALS: BMI 32.7
[2023-11-25] MEDS: TORADOL 15 MG IV ×4 (05:48→23:38)
[2023-11-25 07:28] LABS: % Basophils 0.1 % (0-2); % Immature Granulocytes 0.4 % (0-0.5); % Lymphocytes 11.8 % (20.5-51.1); % Monocytes 7.9 % (1.7-9.3); % Neutrophils 79.8 % (42.2-75.2); Absolute Lymphocytes 0.9 10^3/uL (1.2-3.4); Absolute Monocytes 0.6 10^3/uL (0.1-0.6); Absolute Neutrophils 6.1 10^3/uL (1.4-6.5); Hemoglobin 11.8 g/dL (13.0-18.0); Mean Corp Hgb Conc. 33.7 g/dL (33.0-37.0); Mean Corpuscular Hgb 30.8 pg (27.0-31.0); Mean Corpuscular Volume 91.4 fL (80.0-94.0); Nucleated Red Blood Cells % 0 % (-); Red Blood Cell Count 3.83 10^6/uL (4.70-6.10); Red Cell Dist. Width 13.9 % (11.5-14.5); White Blood Cell Count 7.6 10^3/uL (4.8-10.8)
[2023-11-25 07:35] VITALS: BP 118/71
[2023-11-25 07:59] LABS: Blood Urea Nitrogen 12 mg/dl (9-20); Calcium 8.5 mg/dl (8.4-10.2); Carbon Dioxide 23 mmol/L (22-30); Chloride 106 mmol/L (98-107); Estimated Creatinine Clearance > 125 ml/min; Glucose 104 mg/dl (70-99); Potassium 3.9 mmol/L (3.5-5.1); Sodium 136 mmol/L (135-145); eGFR > 60.00
[2023-11-25] MEDS: CLARITIN 10 MG PO (08:03)
[2023-11-25] MEDS: ENTEREG 12 MG PO ×2 (08:03→20:05)
[2023-11-25] MEDS: NORMOSOL-R 1000 IV (08:03)
[2023-11-25] MEDS: TYLENOL 650 MG PO ×4 (08:03→23:37)
[2023-11-25 08:40] LABS: Mean Platelet Volume 9.6 fL (7.4-10.4); Platelet Count 145 10^3/uL (130-400)
--- NOTE | 2023-11-25 09:16 | W.PN.CRS1 ---
Today's Communication / Plan
-
clears
d/c daniels
stent removed
OOB
Assessment/Plan
-
POD#1 Robotic sigmoid colectomy with intracorporeal anastomosis
1. Vitals normal. Hgb 11.8, likely due to diluational anemia.
2. Advance diet to clears.
3. OOB as tolerated.
4. Start Lovenox tonight for DVT prophylaxis. TEDS/SCDS in place.
5. OR pathology pending.
6. Pain control: Tylenol/Toradol standing, Dilaudid PRN.
7. Will plan on advancing diet later today if passing flatus.
8. D/C Daniels. Stent removed at bedside.
9. Continue I/S q1h while awake.
Subjective Data
Procedure
11/23- Robotic sigmoid colectomy with intracorporeal anastomosis
Subjective Data
Date of Service: November 25, 2023
Patient states he feels well. He has no nausea or vomiting. He has flatus. His pain is controlled. He has no bowel function yet.
Objective Data
-
Vital Signs
Temp Pulse Resp BP Pulse Ox
97.7 F 80 16 118/71 94
11/25/23 07:35 11/25/23 07:35 11/25/23 07:35 11/25/23 07:35 11/25/23 07:35
Intake & Output
11/24/23 11/25/23 11/26/23
06:59 06:59 06:59
Intake Total
Output Total 1924
Balance -1730 / -1730
Intake:
Oral fluids 120 / 120
IV fluids (Total) 75 / 75
normosol 75 / 75
Output:
Urine, Daniels 1425 / 1425
Urine, Voided 500 / 500
Lab Results
11/25/23 06:26
11/25/23 06:26
Physical Exam
-
General: No Acute Distress and AOx3
Abdomen: Soft, Non Distended and Non Tender
Skin: Warm and Dry
Incision: Clear, Dry, Intact
[2023-11-25 11:15] VITALS: BP 121/76
[2023-11-25] MEDS: NORMOSOL-R IV (13:35)
--- NOTE | 2023-11-25 14:28 | CM ---
Reviewed the chart notes and spoke with the patient at the bedside. The patient resides with his significant other in a two story home with five steps to enter. The patient reports no DME/VN/SNF in the past The patient confirmed his pharmacy of
choice is the [facility]. CM continues to be available to patient/family and is monitoring medical plan for needs at discharge.
Plan: Discharge to home when medically stable.
[2023-11-25 15:30] VITALS: BP 130/76
[2023-11-25] MEDS: LOVENOX 40 MG SC (17:19)
[2023-11-25 23:34] VITALS: BP 113/72
[2023-11-25] MEDS: ANESTHETIC LOZENGE PO (23:37)
[2023-11-25] MEDS: ANESTHETIC LOZENGE 1 LOZENGE PO (23:47)
[2023-11-26] MEDS: TYLENOL PO (05:08)
[2023-11-26] MEDS: TORADOL 15 MG IV ×2 (05:36→13:20)
[2023-11-26 05:44] VITALS: BMI 32.5
[2023-11-26 06:51] LABS: % Basophils 0.2 % (0-2); % Eosinophils 0.5 % (0-6); % Immature Granulocytes 0.3 % (0-0.5); % Lymphocytes 18.3 % (20.5-51.1); % Monocytes 9.2 % (1.7-9.3); % Neutrophils 71.5 % (42.2-75.2); Absolute Lymphocytes 1.1 10^3/uL (1.2-3.4); Absolute Monocytes 0.6 10^3/uL (0.1-0.6); Absolute Neutrophils 4.3 10^3/uL (1.4-6.5); Hematocrit 35.5 % (39.0-52.0); Hemoglobin 11.8 g/dL (13.0-18.0); Mean Corp Hgb Conc. 33.2 g/dL (33.0-37.0); Mean Corpuscular Hgb 29.8 pg (27.0-31.0); Mean Corpuscular Volume 89.6 fL (80.0-94.0); Mean Platelet Volume 9.3 fL (7.4-10.4); Nucleated Red Blood Cells % 0 % (-); Platelet Count 160 10^3/uL (130-400); Red Blood Cell Count 3.96 10^6/uL (4.70-6.10); Red Cell Dist. Width 13.8 % (11.5-14.5); White Blood Cell Count 6.1 10^3/uL (4.8-10.8)
[2023-11-26 07:31] LABS: Blood Urea Nitrogen 10 mg/dl (9-20); Calcium 8.4 mg/dl (8.4-10.2); Carbon Dioxide 25 mmol/L (22-30); Chloride 107 mmol/L (98-107); Estimated Creatinine Clearance > 125 ml/min; Glucose 95 mg/dl (70-99); Potassium 3.8 mmol/L (3.5-5.1); Sodium 139 mmol/L (135-145); eGFR > 60.00
[2023-11-26 07:40] VITALS: BP 131/82
[2023-11-26] MEDS: ENTEREG 12 MG PO (08:15)
[2023-11-26] MEDS: TYLENOL 650 MG PO ×2 (08:15→13:20)
[2023-11-26] MEDS: CLARITIN 10 MG PO (08:15)
[2023-11-26] MEDS: PROTONIX 40 MG PO (10:07)
--- NOTE | 2023-11-26 10:50 | W.PN.GS2 ---
Today's Communication / Plan
-
Dispo
Assessment / Plan
-
43-year-old male postoperative day 2 status post a robotic sigmoidectomy for diverticulitis. Doing well, expected postoperative course.
Low residue diet, if he tolerates it well we will discharge later today.
PPI reordered at patient request.
Time Spent
Total Time Spent with Patient (in minutes): 10
Subjective Data
-
Date of Service: November 26, 2023
Interval Events:
No acute events overnight. Slept well. Pain Controlled. Denies Nausea/Vomiting, +bowel function. Tolerating diet.
Objective Data
-
Intake and Output
11/25/23 11/26/23 11/27/23
06:59 06:59 06:59
Intake Total 195 / 195 1999 / 1999
Output Total 1925 / 1925 1210 / 1210
Balance -1730 / -1730 790 / 790
Intake:
Oral fluids 120 / 120 1500 / 1500
IV fluids (Total) 75 / 75 500 / 500
normosol 75 / 75
Output:
Urine, Davies 1425 / 1425 250 / 250
Urine, Voided 500 / 500 960 / 960
Vital Signs
Temp Pulse Resp BP Pulse Ox
98.9 F 89 16 131/82 97
11/26/23 07:40 11/26/23 07:40 11/26/23 07:40 11/26/23 07:40 11/26/23 07:56
Lab Results
11/26/23 06:05
11/26/23 06:05
Calcium 8.4 mg/dl (8.4-10.2) 11/26/23 06:05
Total Bilirubin 1.0 mg/dl (0.2-1.3) 11/20/23 08:54
AST 41 U/L (17-59) 11/20/23 08:54
ALT 52 U/L (0-50) H 11/20/23 08:54
Alkaline Phosphatase 71 U/L (38-126) 11/20/23 08:54
Total Protein 7.1 g/dl (6.3-8.2) 11/20/23 08:54
Albumin 4.3 g/dl (3.5-5.0) 11/20/23 08:54
Physical Exam
-
GENERAL/NEURO: Awake, Alert, no distress
CHEST: Unlabored breathing on RA
ABDOMEN: Soft, Non-Tender, Non-Distended, incisions clean dry and intact.
[2023-11-26 14:45] VITALS: BP 123/77
--- NOTE | 2023-11-27 14:44 | W.DCSUMMARY ---
Discharge Summary
Discharge Data
Date of Admission: 11/24/23
Date of Discharge: 11/26/23
-
Pending Results: No
Hospital Course
43 yo male who presented for surgical management of recurrent sigmoid diverticulitis with recent abscess requiring percutaneous drainage with robotic sigmoid colectomy and cystoscopy for stent placement to identify the ureters. He tolerated the
procedures well without complication. Diet was able to be advanced and well tolerated post operatively. Stents and daniels removed with return to baseline voiding pattern prior to discharge. Pain was well controlled on minimal analgesics.
Discharge Plan
-
Patient Disposition: Home (Routine Discharge)
Discharge Diagnosis/Procedures: Diverticulitis. Robotic sigmoidectomy
Condition: Good
Diet: Low Fiber
Activity: No strenuous activity
Driving Restrictions: As prior to admission
Activity Restrictions/Additional Instructions:
Colon and Rectal Surgery Patient Discharge Instructions
Activity level: Avoid heavy lifting for the next 4 weeks or until cleared to do so at follow-up appointment. To expound on this, no straining, lifting, pushing, pulling greater than 10 lbs during this time frame. Do not engage in any activities
that would engage your core/abdominal muscles. No running, jumping, etc. Otherwise activity as tolerated by comfort level. It is OK to walk, and you should be encouraged to walk frequently.
Diet: Continue with a low residue diet until your follow-up appointment. You should try and drink 2 liters of fluids daily.
Bowel Medications: You should try to avoid being constipated for the next 4 weeks. If you find that you do not pass any stool for 48 hours, you should try over the counter options first for management of constipation - use miralax one to two times a
day. If this does not work, try adding milk of magnesia. You will use different medications and find the right regimen that works for you.
Driving: No driving while still taking opioid pain medications (wait at least 6-8 hours since last dose). No driving if you are still sore from surgery as it may limit your ability to react quickly if necessary.
Shower/Bath: You may shower and get incision(s) wet. Pat dry immediately following. Do not scrub them vigorously for the next 2-3 weeks. Do not soak incision(s) for the next 2 weeks (i.e. soaking in bath or swimming) as this may promote a wound
infection.
Wound Care: Remove gauze dressing if applied over wound. Wash incision with soap and water, pat dry, and leave open to air. You may cover with gauze as needed to prevent incision rubbing on clothes or for any seepage. If you have skin suzanne or
sutures please call the office number below to schedule a follow-up appointment in 2 weeks.
Pain Medication: Tylenol should be used as primary [id number] pain reliever; 650mg every 6 hours as needed. Do not exceed 3000mg in 24 hours. Ibuprofen may also be used and dosed at 600mg every 6 hours as well and should be taken with food.
Alternate these two medications every three hours around the clock. ex. Tylenol 9am, Ibuprofen 12-noon, Tylenol 3pm, Ibuprofen 6pm, etc. Ibuprofen should only be used for a maximum of 2 weeks post-operatively. In addition to these medications,
non-opioid therapies and non-pharmacologic modalities such as heating pad, ice, and activity modification are recommended as appropriate for adjunct treatment of your pain.
For break through pain management, you are also being prescribed a prescription opioid for the treatment of acute post-operative pain related to surgery. You have been advised to take the smallest dose possible to control your pain and as your pain
improves, please take smaller doses and increase the time between doses.
Follow up Appointments/Questions: Please call [phone] to schedule/confirm your follow-up visit time

Call your doctor if:
- You develop any of the following sings or symptoms of infection:
- Redness or swelling of your incision (some mild redness around the incision and the staple sites is normal)
- Drainage or bleeding from your incision
- Fever over 100.5 F
- Increased pain or discomfort at the incision site
- Persistent nausea and/or vomiting or the inability to keep foods or fluids down in a 24 hour period.
- Signs or symptoms of dehydration:
- Dry mouth, lightheadedness
- Dark, concentrated urine, or lack of urine
- Any other concerning sign or symptom such as shortness or breath, chest pain, pain with urination or other signs of urinary tract infection (UTI), or new leg pain/swelling. Also, please call if you develop increasing abdominal pain, increasing
abdominal pain, abdominal firmness, if you stop passing gas or stool for an extended period of time, or bloody bowel movements/vomiting.
Referrals:
Michael Cardenas MD [Active] - in two to three weeks
Janes Wade DO [Family Provider] -
Prescriptions:
New
ibuprofen 200 mg tablet
400 - 600 mg PO Q6HPRN PRN (Reason: moderate pain) Qty: 1 0RF
tramadol 50 mg tablet
25 - 50 mg PO Q6HPRN PRN (Reason: severe pain/breakthrough pain) Qty: 10 0RF
Continued
fexofenadine [Ashanti Allergy] 60 mg Tablet
180 mg PO Q24H
acetaminophen 500 mg Tablet
1,000 mg PO Q6H PRN (Reason: pain)
fluticasone propionate 50 mcg/actuation Thor,Suspension
2 spray INTRANASAL DAILY
esomeprazole magnesium [Nexium] 40 mg Capsule,Delayed Release(Dr/Ec)
40 mg PO DAILY Qty: 0
Discontinued
metronidazole 500 mg Tablet
500 mg PO 1400,1500,2200
Patient Comments:
took at 1400,1500, and 2200 on 11/24/23
neomycin 500 mg Tablet
1 g PO 1400,1500,2200
Patient Comments:
Took at 1400, 1500, and 2200 on 11/23/23
Sutab 1.479-0.188- 0.225 gram Tablet
0 tab PO PRE OP
Patient Comments:
Patient vomited and broke out in hives with last dose of SuTab bowel prep
Discharge Orders:
Discharge Patient (As Directed); Ordered 11/26/23
Ordered By: Ligia Herrera
Discharge Date and Time
Discharge Date/Time: 11/26/23 15:07
Print Language: [place]
== END 2023-11-26 15:07 | disposition home or self-care (01) | DRG 330 ==
LOC: 2 NORTH 05:45
PROVIDERS: Physician Assistant; Specialist; ADMITTING PHYSICIAN Surgery; FAMILY PHYSICIAN Family Medicine
PROC: 8E0W4CZ Robotic Assisted Procedure of Trunk Region, Percutaneous Endoscopic Approach (ICD-10-PCS; 2023-11-24)
PROC: 4A1BXSH Monitoring of Gastrointestinal Vascular Perfusion using Indocyanine Green Dye, External Approach (ICD-10-PCS; 2023-11-24)
PROC: 0DJD8ZZ Inspection of Lower Intestinal Tract, Via Natural or Artificial Opening Endoscopic (ICD-10-PCS; 2023-11-24)
PROC: 0T788DZ Dilation of Bilateral Ureters with Intraluminal Device, Via Natural or Artificial Opening Endoscopic (ICD-10-PCS; 2023-11-24)
PROC: 0DTN4ZZ Resection of Sigmoid Colon, Percutaneous Endoscopic Approach (ICD-10-PCS; 2023-11-24)
DX: K57.32 Diverticulitis of large intestine without perforation or abscess without bleeding (principal); N13.30 Unspecified hydronephrosis; K76.0 Fatty (change of) liver, not elsewhere classified; K66.0 Peritoneal adhesions (postprocedural) (postinfection)
CPT/HCPCS: 88307; 36415; 80048; 80053; 83036; 85025; 85027; 85610; 85730; 86850; 86900; 86901; 87070; J1335

== ENCOUNTER 2024-05-24 11:03 | Emergency (ER) | payer OTHER, SELFPAY ==
[2024-05-24 11:08] VITALS: BP 129/78
[2024-05-24 11:42] VITALS: BMI 33.2
[2024-05-24 11:49] LABS: % Basophils 0.5 % (0-2); % Eosinophils 1.1 % (0-6); % Immature Granulocytes 0.4 % (0-0.5); % Lymphocytes 19.1 % (20.5-51.1); % Monocytes 9.7 % (1.7-9.3); % Neutrophils 69.2 % (42.2-75.2); Absolute Eosinophils 0.1 10^3/uL (0-0.7); Absolute Lymphocytes 1.1 10^3/uL (1.2-3.4); Absolute Monocytes 0.6 10^3/uL (0.1-0.6); Absolute Neutrophils 3.9 10^3/uL (1.4-6.5); Hematocrit 41.1 % (39.0-52.0); Hemoglobin 14.3 g/dL (13.0-18.0); Mean Corp Hgb Conc. 34.8 g/dL (33.0-37.0); Mean Corpuscular Hgb 30.4 pg (27.0-31.0); Mean Corpuscular Volume 87.3 fL (80.0-94.0); Nucleated Red Blood Cells % 0 % (-); Platelet Count 207 10^3/uL (130-400); Red Blood Cell Count 4.71 10^6/uL (4.70-6.10); Red Cell Dist. Width 12.8 % (11.5-14.5); White Blood Cell Count 5.7 10^3/uL (4.8-10.8)
[2024-05-24 11:54] VITALS: BP 108/71
[2024-05-24 12:00] VITALS: BP 110/65
[2024-05-24 12:03] LABS: ALT (SGPT) 36 U/L (0-50); AST (SGOT) 27 U/L (17-59); Albumin 4.4 g/dl (3.5-5.0); Alkaline Phosphatase 59 U/L (38-126); Blood Urea Nitrogen 21 mg/dl (9-20); Calcium 9.3 mg/dl (8.4-10.2); Carbon Dioxide 25 mmol/L (22-30); Chloride 106 mmol/L (98-107); Estimated Creatinine Clearance 124 ml/min; Glucose 117 mg/dl (70-99); Lipase 32 U/L (23-300); Potassium 4.2 mmol/L (3.5-5.1); Sodium 139 mmol/L (135-145); Total Bilirubin 1.2 mg/dl (0.2-1.3); Total Protein 6.7 g/dl (6.3-8.2); eGFR > 60.00
[2024-05-24 13:00] VITALS: BP 108/67
[2024-05-24 14:00] VITALS: BP 117/77
--- NOTE | 2024-05-24 14:51 | ED.GENMED ---
History of Present Illness
General
Chief Complaint: Abdominal Pain
Source: patient
Exam Limitations: none
Time Seen by Provider: 05/24/24 11:53
Nursing documentation reviewed up to this point in time: agreed with
History of Present Illness
History of Present Illness:
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
in the week he noted the pain in the right side (points to anterior lower rib area). The right upper quadrant/lower rib area pain sometimes radiates across his mid abdomen to the left upper abdomen. He states the pains have been there for 3 days,
intermittent past 2 days but more constant today. He states the pain is worse with deep breathing and with certain movements. He denies N/V/D/C. He denies CP/SOB. He states the pain is 6/10. He states he slept well through the night.
Denies change in color of stools.
Past History
Past History
ED Past Medical History: GERD, Psychiatric (Anxiety, Depression) and Other (barretts esophagus, Diverticulitis, )
ED Past Surgical History: Cholecystectomy, Orthopedic (ORIF left foot) and Other (Hernia)
Social History
Tobacco: Non-smoker
Alcohol: None
Personal: Partner (Same sex)
Living: with family
Review of Systems
Review of Systems
Allergies reviewed?: Yes
All Other Systems: ROS reviewed and negative except as documented in HPI and ROS
Constitutional: Denies fever
Respiratory: Denies trouble breathing
Cardiac: Denies chest pain
ABD/GI: Reports abdominal pain; Denies nausea, vomiting, diarrhea, bloody stools, black stools or anorexia
: Denies dysuria or difficulty voiding
Musculoskeletal: Denies neck pain or back pain
Skin: Reports no symptoms
Neurological: Reports no symptoms
Phy Exam
Physical Exam
Physical Exam:
GENERAL: No acute distress. A&Ox3.
CONSTITUTIONAL: Afebrile.
EYES: Clear, conjunctivae normal
ENMT: moist mucus membranes, Pharynx nl
RESPIRATORY: Regular respirations, nonlabored, lungs clear.
CARDIOVASCULAR: Regular rate and rhythm, no murmurs, no rubs.
GI: Soft, obese, mildly mid to left upper abdomen. No tenderness with palpation of right upper abdomen., normal BS
MUSCULOSKELETAL: Mildly tender to palpate with compression of right lower ribs Moves with ease. Well perfused.
SKIN: Warm, dry, pink
PSYCH: Normal mood and affect. Well kept, interactive and appropriate
NEUROLOGIC: Awake, alert and oriented. No focal neurological deficits
Course
Orders/Labs/Results
Orders:
Orders
05/24/24 11:41
Complete Blood Count/With Diff Urgent
Comprehensive Metabolic Panel Urgent
Lipase Urgent
05/24/24 12:35
CT Abd/Pel (IV only)-DH only Urgent
Comment:
Reason For Exam: mid to left upper abd pain
Abnormal Lab Results
05/24/24
11:41
Absolute Lymphs (auto) 1.1 L 10^3/uL
(1.2-3.4)
Lymphocytes % 19.1 L %
(20.5-51.1)
Monocytes % 9.7 H %
(1.7-9.3)
BUN 21 H mg/dl
(9-20)
Glucose 117 H mg/dl
(70-99)
05/24/24 11:41
05/24/24 11:41
Vital Signs
Initial and Last Documented VS:
Initial Vital Signs
Temp Pulse Resp BP Pulse Ox
98.0 F 79 20 129/78 99
05/24/24 11:08 05/24/24 11:08 05/24/24 11:08 05/24/24 11:08 05/24/24 11:08
Last Documented Vital Signs
Temp Pulse Resp BP Pulse Ox
98.0 F 65 15 111/73 97
05/24/24 11:08 05/24/24 15:00 05/24/24 15:00 05/24/24 15:00 05/24/24 15:00
MDM/Problems Addressed
Differential Diagnosis Includes:
abdominal musculoskeletal pain
Diverticulitis, gastritis,
MDM/Problems Addressed:
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
in the week he noted the pain in the right side (points to anterior lower rib area). The right upper quadrant/lower rib area pain sometimes radiates across his mid abdomen to the left upper abdomen. He states the pains have been there for 3 days,
intermittent past 2 days but more constant today. He states the pain is worse with deep breathing and with certain movements. He denies N/V/D/C. He denies CP/SOB. He states the pain is 6/10. He states he slept well through the night.
Denies change in color of stools.
Afebrile, NAD
Pt is tender to compression of right lower anterior ribs. He is mostly tender however, with palpation mid epigastric to LUQ.
1:00 PM:
CMP normal
CBC normal
Lipase normal
2:00 PM:
CT abdomen pelvis with IV only contrast radiology report read: IMPRESSION:.
Prior cholecystectomy. No biliary tract dilatation. No findings to suggest abnormal focal fluid collection in the gallbladder fossa. Patient
Prior sigmoid resection, unremarkable anastomosis. Limited evaluation of large bowel without oral contrast without gross distal pericolonic inflammatory changes. No intestinal obstruction or free air.
Unremarkable appendix.
Subcentimeter low-attenuation left renal lesion too small to characterize.
Results discussed with patient. He is instructed to return for fever, vomiting, Blood in stools, worsening abdominal pain or feeling worse in any way.
Instructed to f/u with his GI doctor in 2 days (after the weekend) if no improvement with bland diet and Tylenol.
He states pain is worse with certain movements, denies it feeling like/not burning like his GERD or Barretts's esophagus, agrees it may be from doing heavy lifting past few days
Instructed to not life over 5 lbs at work for next week, work note for this given
*Critical Care Note
Total Time (30-74mins, 75-104mins- exclusive of procedures): Not Applicable
ED Attending Note
-
Portions of this chart may have been created with voice recognition software.� Occasional wrong word or��sound alike� substitutions may have occurred due to the inherent limitations of voice recognition software.
Discharge Plan
Departure
Patient Disposition: Home (Routine Discharge)
Date of Disposition: 05/24/24
Time of Disposition: 14:58
Patient with high blood pressure during this ER visit?: No
Condition: Good
Discharge Problem:
Abdominal pain
Instructions: Fisher diet, Abdominal muscle strain - ED discharge instructions, Abdominal Pain
Prescriptions:
No Action
fexofenadine [Ashanti Allergy] 60 mg Tablet
180 mg PO Q24H
acetaminophen 500 mg Tablet
1,000 mg PO Q6H PRN (Reason: pain)
fluticasone propionate 50 mcg/actuation [place],Suspension
2 spray INTRANASAL DAILY
ibuprofen 200 mg tablet
400 - 600 mg PO Q6HPRN PRN (Reason: moderate pain) Qty: 1 0RF
tramadol 50 mg tablet
25 - 50 mg PO Q6HPRN PRN (Reason: severe pain/breakthrough pain) Qty: 10 0RF
esomeprazole magnesium [Nexium] 40 mg Capsule,Delayed Release(Dr/Ec)
40 mg PO DAILY Qty: 0
Referrals:
Your, GI doctor [Other] - Call in 1-3 days for appt
Janes Wade, DO [Family Provider] - As needed
Stand Alone Forms: Return to Work
Activity Restrictions/Additional Instructions:
As we discussed, your workup here today shows nothing worrisome.
You may have strained your abdominal muscles
Try a bland diet for a few days to see if that helps
You may try Ibuprofen 600 mg every 8 hours (with food) for two days to see if it helps
Follow-up with your family doctor or your GI doctor next week if you are not feeling much better after resting and Ibuprofen
Reasons to return here: vomiting, worsening abdominal pain, bloody stools, fever or feeling sicker in any way.
Interventions
Interventions:
*Risk Screen - Suicide Last Done: 05/24/24 11:42
*General Assessment Last Done: 05/24/24 11:08
*Neglect/Abuse Screening Last Done: 05/24/24 11:42
ED- Fall Risk Assessment Last Done: 05/24/24 15:50
*ED COVID-19 Vaccine History Last Done: 05/24/24 11:42
*Nursing Disposition Last Done: 05/24/24 15:50
AL-Cnzpza-Hzgwxoyysy Assessment Last Done: 05/24/24 11:42
Discharge Date and Time
Discharge Date/Time: 05/24/24 15:50
Print Language: WELSH
[2024-05-24 15:00] VITALS: BP 111/73
== END 2024-05-24 15:50 | disposition home or self-care (01) ==
LOC: EMR 11:03
PROVIDERS: EMERGENCY PHYSICIAN Emergency Medicine; FAMILY PHYSICIAN Family Medicine
DX: R10.11 Right upper quadrant pain (principal); K21.9 Gastro-esophageal reflux disease without esophagitis
CPT/HCPCS: 99285; 74177; 80053; 83690; 85025; Q9967